=== PATIENT | female | born 1990 | race Caucasian/White ===

== ENCOUNTER 2025-10-13 15:30 | Outpatient (RCR) | payer SELFPAY ==
--- NOTE | 2025-07-13 11:04 | HP.PTEVAL_ITS ---
Patient's Visit Information Visit Information Visit Information: LINO CHILDRESS is a 35 year old F referred to Physical Therapy by Evette Garza DO with a diagnosis of L achilles repair 06/03/25. Date of Evaluation: 07/13/25 Physical Therapist: Cas Juarez, PT, ATC Visit Plan Frequency: 2-3x /Week Duration: 6 Weeks Plan: No weight bearing ex's until after next DrSofiya visit. Pt is PWBing at this time. L ankle stretching, strengthening, DTR, mobilizations, and HEP. Incorporate balance and gait training when pt is able to FWB per surgeon. Subjective Subjective: DOS: 06/03/25. Pt had a complete Achilles tendon tear. Pt had surgery to repair her tendon. Pt was playing volleyball at the time. Pt reports she has been NWB'ing for the first 4 weeks, but has been transitioning to PWB'ing this past week. Pt notes she is still hesitant to put much weight on her L LE secondary to fear of retearing it. 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 Pt reports she will get tingling in her foot occasionally when she sneezes or yawns. Pt reports she has occasional sleep difficulty at this time, especially if she attempts to walk a lot at this time. Pt is scheduled to follow up with her surgoen at the 8 1/2 week evette which she is to continue wearing her boot until that time. 1/10 pain while sitting here at rest, 7/10 pain at worst. Pain L achilles: Pain Intensity (Out of 10): 1 Pain Intensity Range: 7 Objective Objective: Neuro: B LE sensation is WNL to light touch Observation: Incision is fully healed. No signs of infection. ROM: R ankle DF= 14, PF= 60; L ankle DF= -5, PF= 45 degrees MMT: R ankle DF= 38, PF= 60 #F; L LE not tested Balance/Special Test Scores Lower Extremity Functional Score: 4 Goals Goal 1:: Decrease L achilles tendon pain x 50% to aid with sleep Goal Time Frame: 6-8 Weeks Goal 2:: Increase L ankle DF ROM x 15 degrees to aid with restoring a more normalized gait pattern Goal Time Frame: 6-8 Weeks Goal 3:: Increase L ankle strength to be 90 % equal to R ankle strength to aid with return to work Goal Time Frame: 6-8 Weeks Goal 4:: I with HEP Goal Time Frame: 4-6 Weeks Rehabilitation Potential Physical Therapy Diagnosis: Pt has L achilles pain, weakness, and limited ROM secondary to L achilles tendon repair Rehabilitation Potential: Good Anticipated Interventions Patient/Client Instruction: Educate patient on: Condition and Plan of Care For the Purpose of:: To improve self management Therapeutic Exercise to Include: Strength training, Endurance training, Balance training, Flexibilty training, Gait and locomotor training, Passive ROM and Active ROM For the Purpose of:: To decrease pain, To increase ROM and To improve muscle performance and motor function Manual Therapy Techniques to Include: Mobilization and Soft tissue mobilization For the Purpose of:: To decrease pain and To increase ROM Cryotherapy (ice pack, ice massage): Yes For the Purpose of:: To decrease pain Text: Thank you for the opportunity to evaluate your patient. For Medicare and Medicare HMO plans, please review the plan of care and approve it. It will need to be FAXED BACK to us at [phone] for Medicare purposes. For Medicare only, by signing this I certify the plan of care. Please let me know if there are questions or concerns regarding this plan of care. Physician Signature: Date:
--- NOTE | 2025-08-06 12:27 | HP.PTREVAL ---
Re-Evaluation Intro: Dean Garza, DO, It has been my pleasure to treat LINO CHILDRESS over the last 9 visits for L achilles repair 06/03/25. Please see the progress note below for an update on the physical therapy plan of care! Subjective Subjective: I am getting better, but I still have pain. Objective Objective/Function: L achilles pain ranges from 1-8/10 L ankle DF ROM: 6 degrees L ankle MMT: DF= 30, PF= 15 #F Pt is showing excellent progress at this time with strength and ROM. Pt still lacks functional strength and ROM at this time Plan Plan Plan: 08/06/25- Cont with original POC. Pt to see the doctor on Saturday. No weight bearing ex's until after next Dr. visit. Pt is PWBing at this time. L ankle stretching, strengthening, DTR, mobilizations, and HEP. Incorporate balance and gait training when pt is able to FWB per surgeon. Balance/Gait/Functional tests Balance/Special Test Scores Lower Extremity Functional Score: 18 Goals Goals Goal 1:: Decrease L achilles tendon pain x 50% to aid with sleep Goal Time Frame: 6-8 Weeks Goal Progress: Progressing Goal 2:: Increase L ankle DF ROM x 15 degrees to aid with restoring a more normalized gait pattern Goal Time Frame: 6-8 Weeks Goal Progress: Progressing Goal 3:: Increase L ankle strength to be 90 % equal to R ankle strength to aid with return to work Goal Time Frame: 6-8 Weeks Goal Progress: Not Progressing Goal 4:: I with HEP Goal Time Frame: 4-6 Weeks Goal Progress: Goal Met Anticipated Interventions Anticipated Interventions Patient/Client Instruction: Educate patient on: Condition and Plan of Care For the Purpose of:: To improve self management Therapeutic Exercise to Include: Strength training, Endurance training, Balance training, Flexibilty training, Gait and locomotor training, Passive ROM and Active ROM For the Purpose of:: To decrease pain, To increase ROM and To improve muscle performance and motor function Manual Therapy Techniques to Include: Mobilization and Soft tissue mobilization For the Purpose of:: To decrease pain and To increase ROM Cryotherapy (ice pack, ice massage): Yes For the Purpose of:: To decrease pain Re-Evaluation Ending Re-evaluation ending: Please do not hesitate to contact me at [phone] by phone or if you have questions or concerns regarding this new plan of care! Sincerely, Cas Juarez, PT, ATC
--- NOTE | 2025-11-30 10:54 | HP.PTDCSUM ---
Discharge Summary D/C summary: It has been my pleasure to treat LINO CHILDRESS referred by Dean Garza DO, with the diagnosis of L achilles repair 06/03/25 for a total of 25 visit(s). Discharge Date: Please see the following information for a summary of their discharge status. Subjective Subjective: L ankle pain ranges from 1-2/10 Pain L achilles: Pain Intensity (Out of 10): 1 Overall Improvement % Improvement: 90 Objective Objective/Function: L achilles pain 1-2/10 L ankle DF ROM 20 degrees L ankle MMT: DF= 39 (R= 41), PF= 71 (R= 72), Ever= 40 (R= 31) I with HEP Goals Goal 1:: Decrease L achilles tendon pain x 50% to aid with sleep Goal Progress: Goal Met Goal 2:: Increase L ankle DF ROM x 15 degrees to aid with restoring a more normalized gait pattern Goal Progress: Goal Met Goal 3:: Increase L ankle strength to be 90 % equal to R ankle strength to aid with return to work Goal Progress: Goal Met Goal 4:: I with HEP Goal Progress: Goal Met Plan Plan: Discharge to HEP D/C Information d/c sentence: If there are questions or concerns regarding this patient's physical therapy, please feel free to call me at [phone]. Thank you for the referral of this patient. Sincerely, Cas Juarez, PT, ATC Balance/Gait/Functional tests Balance/Special Test Scores Lower Extremity Functional Score: 18 Improvement % Improvement: 90
== END 2025-10-13 19:00 | disposition home or self-care (01) ==
LOC: PT 15:30
PROVIDERS: Referring Provider Orthopaedic Surgery; Visit Provider Orthopaedic Surgery
DX: S86.092D Other specified injury of left Achilles tendon, subsequent encounter (principal); S86.012A Strain of left Achilles tendon, initial encounter; Z47.89 Encounter for other orthopedic aftercare
CPT/HCPCS: 97110; 97140; 97161; 97530